=== PATIENT | female | born 1965 | race Caucasian/White ===

== ENCOUNTER 2025-08-01 14:59 | Observation (INO) | payer OTHER ==
[~2025-08-01] VITALS: Ht 157.5 cm; Wt 68.4 kg
[2025-08-01] MEDS ORDERED: WARF4TAB52 PO (18:32)
[2025-08-01] MEDS: NS (Normal Saline) 0.9% 1,000 ML IV ONE (19:10)
[2025-08-01] MEDS: ACETAMINOPHEN *IV* 1,000 MG in IV 1 EA IV ONE (19:30)
[2025-08-01 21:59] LABS: PLATELET COUNT, AUTOMATED 245 10^3/uL (150-450)
[2025-08-01] MEDS ORDERED: WARF-22 PO ×2 (22:03)
[2025-08-01] MEDS ORDERED: ACET-907 PO (22:03)
[2025-08-01] MEDS ORDERED: MED REC COMMENT (22:03)
[2025-08-01] MEDS ORDERED: IBUP-1764 PO (22:03)
[2025-08-01] MEDS ORDERED: EXCETAB22 PO (22:03)
[2025-08-01 22:05] LABS: ERYTHROCYTE SEDIMENTATION RATE 21 mm/hr (0-30)
[2025-08-01] MEDS ORDERED: HOME MED LIST COMPLETE! XX SCH (22:10)
[2025-08-01 22:34] LABS: ALT/SGPT 17 U/L (7.0-40); AST/SGOT 22 U/L (<34); C REACTIVE PROTEIN QUANTITATIV < 0.50 MG/DL (<1.0); CALCIUM LEVEL 9.1 MG/DL (8.5-10.1); CARBON DIOXIDE LEVEL 25 MMOL/L (20-31); CHLORIDE LEVEL 109 MMOL/L (98-107); CREATININE FOR GFR 0.68 MG/DL (0.55-1.30); GLOMERULAR FILTRATION RATE > 90.0 (>51); POTASSIUM SERUM 4.0 MMOL/L (3.5-5.1); SODIUM LEVEL 144 MMOL/L (136-145)
[2025-08-02] MEDS ORDERED: ACETAMINOPHEN 325 MG TAB PO PRN (02:10)
[2025-08-02] MEDS ORDERED: EXCEDRIN MIGRAINE TABLET PO PRN (02:10)
[2025-08-02] MEDS ORDERED: MOM 30 ML SUSPENSION UDC PO PRN (02:10)
[2025-08-02] MEDS ORDERED: MAALOX 30 ML SUSP *UDC PO PRN (02:10)
[2025-08-02 03:05] VITALS: BP 158/81; TEMP 98.5; O2SAT 95
[2025-08-02] MEDS: ACETAMINOPHEN *IV* 500 MG in IV 1 EA IV PRN (03:47)
[2025-08-02] MEDS ORDERED: PERCOCET 5MG/325MG TAB PO PRN ×2 (08:35)
[2025-08-02] MEDS ORDERED: NALOXONE INJ 0.4 MG/1 ML VIAL IV PRN ×2 (08:35→09:20)
[2025-08-02] MEDS ORDERED: WARFARIN SOD 1MG TAB PO SCH (09:00)
[2025-08-02] MEDS ORDERED: RIZA10TA64 PO (09:05)
[2025-08-02] MEDS ORDERED: NORV5TAB PO (09:07)
[2025-08-02] MEDS ORDERED: TALK1KIT MC (09:07)
[2025-08-02] MEDS ORDERED: PERC5TAB12 PO (09:12)
[2025-08-02] MEDS ORDERED: RIZATRIPTAN BENZOATE 10 MG TAB PO ONE (09:20)
[2025-08-02] MEDS ORDERED: HYDROMORPHONE HCL 0.5 MG/0.5 ML SYRINGE IV ONE (09:20)
[2025-08-02] MEDS: OMEPRAZOLE 20MG CAP PO SCH (09:41)
[2025-08-02] MEDS: KETOROLAC 30 MG/ML 1 ML VIAL IV ONE (09:42)
[2025-08-02] MEDS: DOCUSATE SODIUM 100 MG CAPSULE PO SCH (09:42)
[2025-08-02] MEDS: HYDROMORPHONE HCL 0.5 MG/0.5 ML SYRINGE IV ONE (09:43)
[2025-08-02] MEDS: RIZATRIPTAN BENZOATE 10 MG TAB PO ONE (10:05)
[2025-08-02] MEDS ORDERED: WARFARIN SOD 5MG TAB PO SCH (17:00)
[2025-08-02] MEDS ORDERED: SUCRALFATE 1 GM TAB PO SCH (18:00)
[2025-08-04] MEDS ORDERED: WARFARIN SOD 2.5MG TAB PO SCH (17:00)
== END 2025-08-02 11:21 | disposition home or self-care (01) ==
LOC: M ED 14:59 → M ED INP 15:00 → M MS4PR 08-02 03:05
PROVIDERS: ADMIT Student in an Organized Health Care Education/Training Program; ATTEND Student in an Organized Health Care Education/Training Program
DX: G43.019 Migraine without aura, intractable, without status migrainosus (principal); Q23.81 Bicuspid aortic valve; Z95.2 Presence of prosthetic heart valve; Z79.01 Long term (current) use of anticoagulants; Z79.899 Other long term (current) drug therapy
CPT/HCPCS: 70450; 80053; 85027; 85652; 86140; 96374; 96375; 96376; 99285; J0131; J0136; J1171; J1885; J2765; J2919